=== PATIENT | male | born 1955 | race Caucasian/White ===

== ENCOUNTER 2021-11-13 10:10 | Day surgery (SDC) | payer BC, MEDICARE ==
[2021-11-13] MEDS ORDERED: Depo-Medrol 40 MG/ML IM ONE (10:11)
[2021-11-13] MEDS ORDERED: Xylocaine 1% Vial 30 ML PF IJ ONE (10:11)
[2021-11-13] MEDS ORDERED: DIPRIVAN 200 MG/20 ML IV ONE (12:54)
[2021-11-13] MEDS ORDERED: Lactated Ringers 1,000 ML IV ONE (13:30)
--- NOTE | 2021-11-13 14:48 | XRAY ---
Indication: Left L4-S1 transforaminal FERNANDO. Intraoperative fluoroscopy provided for 28 seconds. 5 digital spot images submitted for interpretation demonstrates posterior needle tips projecting over the expected left L4 and L5 nerve roots. Small amount of contrast injected for needle tip placement. Correlate with intraoperative findings/report.
--- NOTE | 2021-11-13 16:46 | XRAY ---
28 seconds of fluoroscopy was used in surgery for a left L4-S1 transforaminal FERNANDO.
== END 2021-11-13 13:28 | disposition home or self-care (01) ==
LOC: SDC-PAIN 10:10
PROVIDERS: ATTEND Psychiatry & Neurology Pain Medicine
DX: M54.16 Radiculopathy, lumbar region (principal); Z79.899 Other long term (current) drug therapy
CPT/HCPCS: 64483; 64484; 72100; 77003; J1030; J2001; J2704; Q9966

== ENCOUNTER 2022-01-29 13:06 | Day surgery (SDC) | payer BC ==
[2022-01-29] MEDS ORDERED: Depo-Medrol 40 MG/ML IM ONE (13:07)
[2022-01-29] MEDS ORDERED: Sodium Chloride 0.9(Preservative Free) 10 ML IJ ONE (13:07)
[2022-01-29] MEDS ORDERED: Xylocaine-Mpf 2% 5 Ml Vial ONE (16:15)
[2022-01-29] MEDS ORDERED: DIPRIVAN 200 MG/20 ML IV ONE (16:15)
[2022-01-29] MEDS ORDERED: Lactated Ringers 1,000 ML IV ONE (17:20)
--- NOTE | 2022-01-29 19:29 | XRAY ---
Indication: Left L4-S1 transforaminal FERNANDO. Intraoperative fluoroscopy provided for 26 seconds. 4 digital spot image submitted for interpretation demonstrates posterior needle tips projecting over the expected left L4 and L5 nerve roots. Small amount of contrast injected for needle tip placement. Correlate with intraoperative findings/report.
--- NOTE | 2022-01-30 08:29 | XRAY ---
26 seconds of fluoroscopy was used in surgery for a left L4-S1 transforaminal FERNANDO.
== END 2022-01-29 16:37 | disposition home or self-care (01) ==
LOC: SDC-PAIN 13:06
PROVIDERS: ATTEND Psychiatry & Neurology Pain Medicine
DX: M54.16 Radiculopathy, lumbar region (principal); Z79.899 Other long term (current) drug therapy
CPT/HCPCS: 64483; 64484; 72100; 77003; J1030; J2704; Q9966

== ENCOUNTER 2022-06-25 13:14 | Day surgery (SDC) | payer BC ==
[2022-06-25] MEDS ORDERED: Depo-Medrol 40 MG/ML IM ONE (13:15)
[2022-06-25] MEDS ORDERED: Sodium Chloride 0.9(Preservative Free) 10 ML IJ ONE (13:15)
[2022-06-25] MEDS ORDERED: Lactated Ringers 1,000 ML IV ONE (15:45)
--- NOTE | 2022-06-25 16:42 | XRAY ---
Indication: Left L4-S1 transforaminal FERNANDO. Intraoperative fluoroscopy provided for 27 seconds. 6 digital spot images submitted for interpretation demonstrates posterior needle tips projecting over the expected left L4 and L5 nerve roots. Small amount of contrast injected for needle tip placement. Correlate with intraoperative findings/report. Incidental partially visualized aortobiiliac stent grafts.
--- NOTE | 2022-06-25 17:22 | XRAY ---
27 seconds of fluoroscopy was used in surgery for a left L4-S1 transforaminal FERNANDO.
== END 2022-06-25 15:55 | disposition home or self-care (01) ==
LOC: SDC-PAIN 13:14
PROVIDERS: ATTEND Psychiatry & Neurology Pain Medicine
DX: M54.16 Radiculopathy, lumbar region (principal); Z79.899 Other long term (current) drug therapy
CPT/HCPCS: 64483; 64484; 72100; 77003; J1030

== ENCOUNTER 2022-12-03 12:29 | Day surgery (SDC) | payer BC ==
[2022-12-03] MEDS ORDERED: Sodium Chloride 0.9(Preservative Free) 10 ML IJ ONE (12:30)
[2022-12-03] MEDS ORDERED: Depo-Medrol 40 MG/ML IM ONE (12:30)
[2022-12-03] MEDS ORDERED: DIPRIVAN 200 MG/20 ML IV ONE (14:30)
[2022-12-03] MEDS ORDERED: Lactated Ringers 1,000 ML IV ONE (15:24)
--- NOTE | 2022-12-03 16:40 | XRAY ---
Indication: Left L4-S1 transforaminal FERNANDO. Intraoperative fluoroscopy provided for 29 seconds. 4 digital spot image submitted for interpretation demonstrates posterior needle tips projecting over the expected left L4 and L5 nerve roots. Small amount of contrast injected for needle tip placement. Correlate with intraoperative findings/report. Incidental partially visualized aortobiiliac stent grafts.
--- NOTE | 2022-12-03 16:44 | XRAY ---
29 seconds of fluoroscopy was used in surgery for a left L4-S1 transforaminal FERNANDO.
== END 2022-12-03 15:05 | disposition home or self-care (01) ==
LOC: SDC-PAIN 12:29
PROVIDERS: ATTEND Psychiatry & Neurology Pain Medicine
DX: M54.16 Radiculopathy, lumbar region (principal); Z79.899 Other long term (current) drug therapy
CPT/HCPCS: 64483; 64484; 72100; 77002; J1030; J2704; Q9966

== ENCOUNTER 2023-04-22 10:58 | Day surgery (SDC) | payer BC ==
[2023-04-22] MEDS ORDERED: Sodium Chloride 0.9(Preservative Free) 10 ML IJ ONE (10:59)
[2023-04-22] MEDS ORDERED: LIDOCAINE HCL 1% 50 MG/5 ML VL PF IJ ONE (10:59)
[2023-04-22] MEDS ORDERED: Depo-Medrol 40 MG/ML IM ONE (10:59)
[2023-04-22] MEDS ORDERED: DIPRIVAN 200 MG/20 ML IV ONE (14:47)
--- NOTE | 2023-04-22 17:01 | XRAY ---
Indication: Lumbar FERNANDO. Intraoperative fluoroscopy provided for 32 seconds. 3 digital spot images submitted for interpretation demonstrates posterior needle tip projecting just posterior to lumbosacral junction interspace. Small amount of contrast injected for needle tip placement. Correlate with intraoperative findings/report. Incidental incompletely visualized aortobiiliac stents.
[2023-04-22] MEDS ORDERED: Lactated Ringers 1,000 ML IV ONE (17:03)
--- NOTE | 2023-04-22 17:04 | XRAY ---
32 seconds of fluoroscopy was used in surgery for a lumbar FERNANDO.
== END 2023-04-22 15:23 | disposition home or self-care (01) ==
LOC: SDC-PAIN 10:58
PROVIDERS: ATTEND Psychiatry & Neurology Pain Medicine
DX: M54.16 Radiculopathy, lumbar region (principal); Z79.899 Other long term (current) drug therapy
CPT/HCPCS: 62323; 72100; 77003; J1030; J2001; J2704; Q9966

== ENCOUNTER 2023-08-05 12:40 | Day surgery (SDC) | payer BC ==
[2023-08-05] MEDS ORDERED: Decadron 4 MG INJ IV ONE (12:41)
[2023-08-05] MEDS ORDERED: Sodium Chloride 0.9(Preservative Free) 10 ML IJ ONE (12:41)
[2023-08-05] MEDS ORDERED: DIPRIVAN 200 MG/20 ML IV ONE (15:40)
[2023-08-05] MEDS ORDERED: Lactated Ringers 1,000 ML IV ONE (16:10)
--- NOTE | 2023-08-05 20:20 | XRAY ---
Indication: Left L4-S1 transforaminal FERNANDO Intraoperative fluoroscopy provided for 24 seconds. 5 digital spot image submitted for interpretation demonstrates posterior needle tips projecting over the expected left L4 and L5 nerve roots. Small amount of contrast injected for needle tip placement. Correlate with intraoperative findings/report. Incidental incompletely visualized aortobiiliac stents
--- NOTE | 2023-08-06 09:37 | XRAY ---
24 seconds of fluoroscopy was used in surgery for a left L4-S1 transforaminal FERNANDO.
== END 2023-08-05 16:13 | disposition home or self-care (01) ==
LOC: SDC-PAIN 12:40
PROVIDERS: ATTEND Psychiatry & Neurology Pain Medicine
DX: M54.16 Radiculopathy, lumbar region (principal); Z79.899 Other long term (current) drug therapy
CPT/HCPCS: 64483; 64484; 72100; 77003; 82947; J1100; J2704; Q9966